=== PATIENT | female | born 1990 | race Caucasian/White ===

== ENCOUNTER 2018-10-18 12:32 | Inpatient (IN) | payer OTHER ==
[~2018-10-18] VITALS: Ht 172.7 cm; Wt 92.3 kg
[2018-10-18 19:47] VITALS: Ht 172.7 cm; Wt 92.3 kg
[2018-10-18 19:55] VITALS: BP 113/58; RESP 18
[2018-10-18] MEDS ORDERED: NACL 0.9% 3 ML SYG IV SCH (20:30)
[2018-10-18] MEDS ORDERED: ONDANSETRON 4 MG INJ IV PRN (20:30)
[2018-10-18] MEDS ORDERED: MAGNESIUM HYDROXIDE 30ML CUP PO PRN (20:30)
[2018-10-18] MEDS ORDERED: NITROGLYCERIN (SL) 0.4 MG TAB SL PRN (20:30)
[2018-10-18] MEDS ORDERED: hydrALAzine 20 MG INJ IV PRN (20:30)
[2018-10-18] MEDS ORDERED: ACETAMINOPHEN 325 MG TAB PO PRN (20:30)
[2018-10-18] MEDS ORDERED: ALBUTEROL/IPRATROPIUM (NEB) 3 ML AMP HHN PRN (20:30)
[2018-10-18] MEDS ORDERED: LORAZEPAM 2 MG INJ IV PRN (20:30)
[2018-10-18] MEDS ORDERED: DOCUSATE SODIUM 100 MG CAP PO PRN (20:30)
[2018-10-18] MEDS: SOD CHLORIDE 0.9% 1,000 ML IV SCH (21:11)
[2018-10-18] MEDS: HEPARIN 5,000 UNIT/1 ML VIAL SC SCH (21:13)
[2018-10-19 02:00] VITALS: BP 109/56; RESP 18
--- NOTE | 2018-10-19 03:50 | HP ---
Date/Time of Note Date/Time of Note DATE: 10/19/18 TIME: 03:46 Assessment/Plan VTE [place] [facility] [place]: 1 [place] [facility] [place] SCD contraindicated: other Pharmacological prophylaxis: heparin Lines/Catheters IV Catheter Type (from [facility]): Peripheral IV Assessment/Plan Hospital Course Assessment and plan: 28-year-old female past medical history of gallstones, transferred from outside hospital due to insurance purposes, who presents with abdominal pain with findings of acute cholecystitis. 1. Abdominal pain: Again likely secondary to acute cholecystitis. -Keep patient n.p.o. except meds, IV fluids, antiemetic medications, pain control medications -Monitor labs in the morning, check TSH A1c lipid panel -Again we will obtain surgery consult this is pending now they are aware to come see the patient possibly for lap scopic cholecystectomy. Again they will make a final decision on this 2. Gastritis: No present issues -Monitor for now, add H2 anita. Results 24hrs Laboratory Tests Test 10/18/18 20:51 Prothrombin Time 12.5 Prothrombin Time Ratio 1.0 INR International Normalized Ratio 0.92 Activated Partial Thromboplast Time 27.5 Free Thyroxine 0.87 HPI/ROS Admit Date/Time Admit Date/Time Oct 18, 2018 at 19:02 Hx of Present Illness 28-year-old female past medical history of gallstones, transferred from outside hospital due to insurance purposes, who presents with abdominal pain. Symptoms have been going on for the last 24 hours. Apparently no prior history of this. She describes some nonbilious nonbloody vomiting symptoms and some mild nausea symptoms. She also had some chills. No fevers, no upper lower GI bleeding no diarrhea constipation, no chest pain or shortness of breath. When she presented to the outside hospital she was found with elevated white blood cell count of 14.2, and she had an abdominal ultrasound performed that showed signs of gallstones and positive cholecystitis. Surgeon has made aware and will come see the patient later today as well as the patient is presently n.p.o. PMH/Family/Social Past Medical History Medications Current Medications IV Flush (NS 3 ml) 3 ml PER PROTOCOL IV ; Start 10/18/18 at 20:30 Ondansetron HCl (Zofran Inj) 4 mg Q6H PRN IV NAUSEA/VOMITING; Start 10/18/18 at 20:30 Acetaminophen (Tylenol Tab) 650 mg Q6H PRN PO .PAIN 1-3 OR TEMP Last administered on 10/18/18at 21:09; Admin Dose 650 MG; Start 10/18/18 at 20:30 Acetaminophen/ Hydrocodone Bitart ([place] (5/325)) 1 tab Q6H PRN PO .MOD PAIN 4- 6; Start 10/18/18 at 20:30 Morphine Sulfate (morphine) 2 mg Q4H PRN IV .SEVERE PAIN 7-10; Start 10/18/18 at 20:30 Docusate Sodium (Colace) 100 mg Q12H PRN PO .CONSTIPATION; Start 10/18/18 at 20:30 Magnesium Hydroxide (Milk Of Mag) 30 ml DAILY PRN PO .CONSTIPATION; Start 10/18/18 at 20:30 Heparin Sodium (Porcine) (Heparin (5000 Units/1ml)) 5,000 unit Q12 SC Last administered on 10/18/18at 21:13; Admin Dose 5,000 UNIT; Start 10/18/18 at 21:00 Lorazepam (Ativan) 0.5 mg Q6H PRN IV ANXIETY; Start 10/18/18 at 20:30 Sodium Chloride 1,000 ml @ 100 mls/hr Q10H IV Last administered on 10/18/18at 21:11; Admin Dose 100 MLS/HR; Start 10/18/18 at 20:26 Albuterol/ Ipratropium (Duoneb) 3 ml Q4H RESP THERAPY PRN HHN SHORTNESS OF BREATH; Start 10/18/18 at 20:30 Hydralazine HCl (Apresoline) 10 mg Q6H PRN IV ELEVATED BLOOD PRESSURE; Start 10/18/18 at 20:30 Nitroglycerin (Nitroglycerin (Sl Tab) 0.4 Mg) 1 tab Q5M PRN SL ANGINA; Start 10/18/18 at 20:30 Coded Allergies: No Known Allergy (Unverified , 10/18/18) Past Surgical History Past Surgical Hx: no surgical history Family History Significant Family History: no pertinent family hx Social History Alcohol Use: none Smoking Status: Never smoker Drug Use: none Exam/Review of Systems Vital Signs Vitals Vital Signs Date Temp Pulse Resp B/P (MAP) Pulse Ox O2 O2 Flow FiO2 Time Delivery Rate 10/19/18 98.7 18 109/56 99 02:00 (73) Exam Exam GENERAL: lying in bed, no acute distress HEENT: Pupils equal, round, and reactive to light. EOMI. NECK: Supple LUNGS: Clear to auscultation bilaterally, no rales, wheezes or rhonchi. HEART: Regular rate and rhythm, no murmurs, clicks, rubs or gallops. ABDOMEN: Soft, slightly tender to palpation, non-distended. Positive bowel sounds in all four quadrants. No rebound or guarding. EXTREMITIES: No lower extremity edema bilaterally NEURO: No focal deficits MAAME VAZQUEZ Oct 19, 2018 03:50
[2018-10-19] MEDS: SOD CHLORIDE 0.9% 1,000 ML IV SCH ×3 (06:26→22:31)
[2018-10-19] MEDS: morphine 2 MG INJ IV PRN ×3 (08:21→17:56)
[2018-10-19] MEDS: FAMOTIDINE 20 MG INJ IV SCH (08:23)
[2018-10-19] MEDS: HEPARIN 5,000 UNIT/1 ML VIAL SC SCH ×2 (08:25→22:16)
[2018-10-19 08:39] VITALS: BP 105/57; RESP 18
--- NOTE | 2018-10-19 15:00 | PN ---
Date/Time of Note Date/Time of Note DATE: 10/19/18 TIME: 14:57 Assessment/Plan VTE Prophylaxis Risk score (from [facility] [place]0 risk: 1 SCD applied (from [facility]s): Yes Pharmacological prophylaxis: NA/contraindicated Pharm contraindication: low risk/ambulating Lines/Catheters IV Catheter Type (from [facility]): Peripheral IV Assessment/Plan Hospital Course Assessment and plan 1. Acute cholecystitis. Continue IV fluids. N.p.o. for now. Continue with analgesics. Surgeon consultation is pending. 2. hx gastritis. No active issue for now. Continue on H2 anita. 3. Obesity. Weight reduction will be advised. Disposition plan. Continue IV fluids and analgesics. Awaiting surgical consultation. Continue in house monitoring. Discussed plan of care with Dr. Haddad Result Diagram: 10/19/18 0711 10/19/18 0711 Results 24hrs Laboratory Tests Test 10/18/18 20:51 10/19/18 07:11 Prothrombin Time 12.5 Prothrombin Time Ratio 1.0 INR International Normalized Ratio 0.92 Activated Partial Thromboplast Time 27.5 Free Thyroxine 0.87 White Blood Count 6.3 Red Blood Count 3.63 L Hemoglobin 11.0 L Hematocrit 32.5 L Mean Corpuscular Volume 89.5 Mean Corpuscular Hemoglobin 30.3 Mean Corpuscular Hemoglobin Concent 33.8 Red Cell Distribution Width 12.1 Platelet Count 265 Mean Platelet Volume 10.0 Immature Granulocytes % 0.200 Neutrophils % 65.0 Lymphocytes % 24.3 Monocytes % 8.0 Eosinophils % 1.9 Basophils % 0.6 Nucleated Red Blood Cells % 0.0 Immature Granulocytes # 0.010 Neutrophils # 4.1 Lymphocytes # 1.5 Monocytes # 0.5 Eosinophils # 0.1 Basophils # 0.0 Nucleated Red Blood Cells # 0.0 Sodium Level 138 Potassium Level 3.6 Chloride Level 106 Carbon Dioxide Level 24 Anion Gap 8 Blood Urea Nitrogen 7 Creatinine 0.52 Est Glomerular Filtrat Rate mL/min > 60 Glucose Level 80 Hemoglobin A1c 5.3 Calcium Level 8.3 L Phosphorus Level 3.7 Magnesium Level 1.8 Triglycerides Level 86 Cholesterol Level 143 LDL Cholesterol, Calculated 80 HDL Cholesterol 46 Cholesterol/HDL Ratio 3.1 Thyroid Stimulating Hormone (TSH) 0.801 Subjective 24 Hr Interval Summary Free Text/Dictation still reports abd pain, no nausea/vomiting Exam/Review of Systems Exam Vitals Vital Signs Date Temp Pulse Resp B/P (MAP) Pulse Ox O2 O2 Flow FiO2 Time Delivery Rate 10/19/18 98.2 18 105/57 98 08:39 (73) Intake and Output 10/18/18 10/18/18 10/19/18 1414:59 22:59 06:59 IntakeIntake Total 700 ml BalanceBalance 700 ml Constitutional: alert, oriented, obese Psych: nl mood/affect Head: normocephalic Neck: supple Respiratory: clear to auscultation, normal air movement Cardiovascular: regular rate and rhythm Gastrointestinal: soft, tender Musculoskeletal: nl extremities to inspection Neurological: CAN STERILIZER II-XII intact, nl mental status, nl speech Skin: nl turgor Results Results 24hrs Laboratory Tests Test 10/18/18 20:51 10/19/18 07:11 Prothrombin Time 12.5 Prothrombin Time Ratio 1.0 INR International Normalized Ratio 0.92 Activated Partial Thromboplast Time 27.5 Free Thyroxine 0.87 White Blood Count 6.3 Red Blood Count 3.63 L Hemoglobin 11.0 L Hematocrit 32.5 L Mean Corpuscular Volume 89.5 Mean Corpuscular Hemoglobin 30.3 Mean Corpuscular Hemoglobin Concent 33.8 Red Cell Distribution Width 12.1 Platelet Count 265 Mean Platelet Volume 10.0 Immature Granulocytes % 0.200 Neutrophils % 65.0 Lymphocytes % 24.3 Monocytes % 8.0 Eosinophils % 1.9 Basophils % 0.6 Nucleated Red Blood Cells % 0.0 Immature Granulocytes # 0.010 Neutrophils # 4.1 Lymphocytes # 1.5 Monocytes # 0.5 Eosinophils # 0.1 Basophils # 0.0 Nucleated Red Blood Cells # 0.0 Sodium Level 138 Potassium Level 3.6 Chloride Level 106 Carbon Dioxide Level 24 Anion Gap 8 Blood Urea Nitrogen 7 Creatinine 0.52 Est Glomerular Filtrat Rate mL/min > 60 Glucose Level 80 Hemoglobin A1c 5.3 Calcium Level 8.3 L Phosphorus Level 3.7 Magnesium Level 1.8 Triglycerides Level 86 Cholesterol Level 143 LDL Cholesterol, Calculated 80 HDL Cholesterol 46 Cholesterol/HDL Ratio 3.1 Thyroid Stimulating Hormone (TSH) 0.801 Medications Medication Current Medications IV Flush (NS 3 ml) 3 ml PER PROTOCOL IV ; Start 10/18/18 at 20:30 Ondansetron HCl (Zofran Inj) 4 mg Q6H PRN IV NAUSEA/VOMITING; Start 10/18/18 at 20:30 Acetaminophen (Tylenol Tab) 650 mg Q6H PRN PO .PAIN 1-3 OR TEMP Last administered on 10/18/18 21:09; Admin Dose 650 MG; Start 10/18/18 at 20:30 Acetaminophen/ Hydrocodone Bitart ([place] (5/325)) 1 tab Q6H PRN PO .MOD PAIN 4- 6; Start 10/18/18 at 20:30 Morphine Sulfate (morphine) 2 mg Q4H PRN IV .SEVERE PAIN 7-10 Last administered on 10/19/18 13:37; Admin Dose 2 MG; Start 10/18/18 at 20:30 Docusate Sodium (Colace) 100 mg Q12H PRN PO .CONSTIPATION; Start 10/18/18 at 20:30 Magnesium Hydroxide (Milk Of Mag) 30 ml DAILY PRN PO .CONSTIPATION; Start 10/18/18 at 20:30 Heparin Sodium (Porcine) (Heparin (5000 Units/1ml)) 5,000 unit Q12 SC Last ad ministered on 10/19/18 08:25; Admin Dose 5,000 UNIT; Start 10/18/18 at 21:00 Lorazepam (Ativan) 0.5 mg Q6H PRN IV ANXIETY; Start 10/18/18 at 20:30 Sodium Chloride 1,000 ml @ 100 mls/hr Q10H IV Last administered on 10/19/18at 10:44; Admin Dose 100 MLS/HR; Start 10/18/18 at 20:26 Albuterol/ Ipratropium (Duoneb) 3 ml Q4H RESP THERAPY PRN HHN SHORTNESS OF BREATH; Start 10/18/18 at 20:30 Hydralazine HCl (Apresoline) 10 mg Q6H PRN IV ELEVATED BLOOD PRESSURE; Start 10/18/18 at 20:30 Nitroglycerin (Nitroglycerin (Sl Tab) 0.4 Mg) 1 tab Q5M PRN SL ANGINA; Start 10/18/18 at 20:30 Famotidine (Pepcid Iv) 20 mg DAILY IV Last administered on 10/19/18 08:23; Admin Dose 20 MG; Start 10/19/18 at 09:00 ANALIA LOMAS NP Oct 19, 2018 15:00
[2018-10-19 15:01] VITALS: BP 113/63; RESP 19
[2018-10-19 20:59] VITALS: BP 119/59; PULSE 71; RESP 20
[2018-10-20] MEDS: HYDROCODONE/APAP (5/325) TAB PO PRN ×2 (01:45→10:06)
--- NOTE | 2018-10-20 01:49 | CONS ---
Assessment/Plan Assessment/Plan Assessment/Plan (Daily) cholelithiasis , possible cholecystitis , plan trial of diet , ultrasound right upper quadrant , if suggestive of acute cholecystits , consider lap bianca this admission . If not will consider discharge and elective lap bianca in future Consultation Date/Type/Reason Admit Date/Time Oct 18, 2018 at 19:02 Date of Consultation: Oct 19, 2018 Type of Consult general surgery Reason for Consultation abdominal pain , suspect cholecystitis Requesting Provider: MAAME VAZQUEZ Date/Time of Note DATE: 10/20/18 TIME: 01:35 Hx of Present Illness patient transferred from [facility], noted to have gallstones and diagnosed with possible cholecystitis . Patient states she developed upper abdominal pain a few days ago and similar episode couple years ago . She presented to [facility] . She was transferred to [facility] due to insurance reasons . Labs normal here . Patient states she continues to have abdominal pain . Past Medical History Medications Current Medications IV Flush (NS 3 ml) 3 ml PER PROTOCOL IV ; Start 10/18/18 at 20:30 Ondansetron HCl (Zofran Inj) 4 mg Q6H PRN IV NAUSEA/VOMITING; Start 10/18/18 at 20:30 Acetaminophen (Tylenol Tab) 650 mg Q6H PRN PO .PAIN 1-3 OR TEMP Last administered on 10/18/18at 21:09; Admin Dose 650 MG; Start 10/18/18 at 20:30 Acetaminophen/ Hydrocodone Bitart ([place] (5/325)) 1 tab Q6H PRN PO .MOD PAIN 4- 6; Start 10/18/18 at 20:30 Morphine Sulfate (morphine) 2 mg Q4H PRN IV .SEVERE PAIN 7-10 Last administered on 10/19/18at 17:56; Admin Dose 2 MG; Start 10/18/18 at 20:30 Docusate Sodium (Colace) 100 mg Q12H PRN PO .CONSTIPATION; Start 10/18/18 at 20:30 Magnesium Hydroxide (Milk Of Mag) 30 ml DAILY PRN PO .CONSTIPATION; Start 10/18/18 at 20:30 Heparin Sodium (Porcine) (Heparin (5000 Units/1ml)) 5,000 unit Q12 SC Last administered on 10/19/18at 22:16; Admin Dose 5,000 UNIT; Start 10/18/18 at 21:00 Lorazepam (Ativan) 0.5 mg Q6H PRN IV ANXIETY; Start 10/18/18 at 20:30 Sodium Chloride 1,000 ml @ 100 mls/hr Q10H IV Last administered on 10/19/18at 22:31; Admin Dose 100 MLS/HR; Start 10/18/18 at 20:26 Albuterol/ Ipratropium (Duoneb) 3 ml Q4H RESP THERAPY PRN HHN SHORTNESS OF BREATH; Start 10/18/18 at 20:30 Hydralazine HCl (Apresoline) 10 mg Q6H PRN IV ELEVATED BLOOD PRESSURE; Start 10/18/18 at 20:30 Nitroglycerin (Nitroglycerin (Sl Tab) 0.4 Mg) 1 tab Q5M PRN SL ANGINA; Start 10/18/18 at 20:30 Famotidine (Pepcid Iv) 20 mg DAILY IV Last administered on 10/19/18at 08:23; Admin Dose 20 MG; Start 10/19/18 at 09:00 Allergies: Coded Allergies: No Known Allergy (Unverified , 10/18/18) Past Surgical History Past Surgical Hx: no surgical history Social History Alcohol Use: none Smoking Status: Never smoker Drug Use: none Exam/Review of Systems Exam Vitals Vital Signs Date Temp Pulse Resp B/P (MAP) Pulse Ox O2 O2 Flow FiO2 Time Delivery Rate 10/19/18 98.3 71 20 119/59 99 20:59 (79) Intake and Output 10/19/18 10/19/18 10/20/18 1515:00 23:00 07:00 IntakeIntake Total 300 ml 1000 ml BalanceBalance 300 ml 1000 ml Gastrointestinal: tender (ruq ) Results Result Diagram: 10/19/18 0711 10/19/18 0711 Results 24hrs Laboratory Tests Test 10/19/18 07:11 White Blood Count 6.3 Red Blood Count 3.63 L Hemoglobin 11.0 L Hematocrit 32.5 L Mean Corpuscular Volume 89.5 Mean Corpuscular Hemoglobin 30.3 Mean Corpuscular Hemoglobin Concent 33.8 Red Cell Distribution Width 12.1 Platelet Count 265 Mean Platelet Volume 10.0 Immature Granulocytes % 0.200 Neutrophils % 65.0 Lymphocytes % 24.3 Monocytes % 8.0 Eosinophils % 1.9 Basophils % 0.6 Nucleated Red Blood Cells % 0.0 Immature Granulocytes # 0.010 Neutrophils # 4.1 Lymphocytes # 1.5 Monocytes # 0.5 Eosinophils # 0.1 Basophils # 0.0 Nucleated Red Blood Cells # 0.0 Sodium Level 138 Potassium Level 3.6 Chloride Level 106 Carbon Dioxide Level 24 Anion Gap 8 Blood Urea Nitrogen 7 Creatinine 0.52 Est Glomerular Filtrat Rate mL/min > 60 Glucose Level 80 Hemoglobin A1c 5.3 Calcium Level 8.3 L Phosphorus Level 3.7 Magnesium Level 1.8 Triglycerides Level 86 Cholesterol Level 143 LDL Cholesterol, Calculated 80 HDL Cholesterol 46 Cholesterol/HDL Ratio 3.1 Thyroid Stimulating Hormone (TSH) 0.801 Medications Medication Current Medications IV Flush (NS 3 ml) 3 ml PER PROTOCOL IV ; Start 10/18/18 at 20:30 Ondansetron HCl (Zofran Inj) 4 mg Q6H PRN IV NAUSEA/VOMITING; Start 10/18/18 at 20:30 Acetaminophen (Tylenol Tab) 650 mg Q6H PRN PO .PAIN 1-3 OR TEMP Last administered on 10/18/18at 21:09; Admin Dose 650 MG; Start 10/18/18 at 20:30 Acetaminophen/ Hydrocodone Bitart ([place] (5/325)) 1 tab Q6H PRN PO .MOD PAIN 4- 6; Start 10/18/18 at 20:30 Morphine Sulfate (morphine) 2 mg Q4H PRN IV .SEVERE PAIN 7-10 Last administered on 10/19/18at 17:56; Admin Dose 2 MG; Start 10/18/18 at 20:30 Docusate Sodium (Colace) 100 mg Q12H PRN PO .CONSTIPATION; Start 10/18/18 at 20:30 Magnesium Hydroxide (Milk Of Mag) 30 ml DAILY PRN PO .CONSTIPATION; Start 10/18/18 at 20:30 Heparin Sodium (Porcine) (Heparin (5000 Units/1ml)) 5,000 unit Q12 SC Last administered on 10/19/18at 22:16; Admin Dose 5,000 UNIT; Start 10/18/18 at 21:00 Lorazepam (Ativan) 0.5 mg Q6H PRN IV ANXIETY; Start 10/18/18 at 20:30 Sodium Chloride 1,000 ml @ 100 mls/hr Q10H IV Last administered on 10/19/18at 22:31; Admin Dose 100 MLS/HR; Start 10/18/18 at 20:26 Albuterol/ Ipratropium (Duoneb) 3 ml Q4H RESP THERAPY PRN HHN SHORTNESS OF BREATH; Start 10/18/18 at 20:30 Hydralazine HCl (Apresoline) 10 mg Q6H PRN IV ELEVATED BLOOD PRESSURE; Start 10/18/18 at 20:30 Nitroglycerin (Nitroglycerin (Sl Tab) 0.4 Mg) 1 tab Q5M PRN SL ANGINA; Start 10/18/18 at 20:30 Famotidine (Pepcid Iv) 20 mg DAILY IV Last administered on 10/19/18at 08:23; Admin Dose 20 MG; Start 10/19/18 at 09:00 GIOVANA WAN MD Oct 20, 2018 01:45
[2018-10-20 02:14] VITALS: BP 104/62; PULSE 68; RESP 18
[2018-10-20 07:50] VITALS: BP 102/55; PULSE 65; RESP 16
[2018-10-20] MEDS: FAMOTIDINE 20 MG INJ IV SCH (10:14)
[2018-10-20] MEDS: HEPARIN 5,000 UNIT/1 ML VIAL SC SCH (10:15)
[2018-10-20] MEDS: SOD CHLORIDE 0.9% 1,000 ML IV SCH (10:24)
[2018-10-20 14:29] VITALS: BP 102/58; PULSE 56; RESP 16
--- NOTE | 2018-10-20 15:25 | PN ---
Date/Time of Note Date/Time of Note DATE: 10/20/18 TIME: 15:23 Assessment/Plan VTE Prophylaxis Risk score (from [facility]s)>0 risk: 2 SCD applied (from [facility]): Yes Pharmacological prophylaxis: NA/contraindicated Pharm contraindication: low risk/ambulating Lines/Catheters IV [facility] Type (from [facility]): Peripheral IV Assessment/Plan Hospital Course 1. Acute cholecystitis Surgical consultation appreciated, plan is to monitor on oral diet, continue antibiotics Patient may need surgery during his hospitalization if abdominal pain persists 2. History of gastritis Continue home meds 3. Obesity Lifestyle changes Prophylaxis: SCDs Disposition plan: Awaiting surgical recommendations. Result Diagram: 10/20/18 0831 10/20/18 0831 Results 24hrs Laboratory Tests Test 10/20/18 08:31 White Blood Count 6.5 Red Blood Count 3.69 L Hemoglobin 10.9 L Hematocrit 32.7 L Mean Corpuscular Volume 88.6 Mean Corpuscular Hemoglobin 29.5 Mean Corpuscular Hemoglobin Concent 33.3 Red Cell Distribution Width 11.9 Platelet Count 261 Mean Platelet Volume 9.8 Immature Granulocytes % 0.300 Neutrophils % 69.3 Lymphocytes % 21.1 Monocytes % 6.5 Eosinophils % 2.2 Basophils % 0.6 Nucleated Red Blood Cells % 0.0 Immature Granulocytes # 0.020 Neutrophils # 4.5 Lymphocytes # 1.4 Monocytes # 0.4 Eosinophils # 0.1 Basophils # 0.0 Nucleated Red Blood Cells # 0.0 Sodium Level 137 Potassium Level 3.7 Chloride Level 106 Carbon Dioxide Level 23 Anion Gap 8 Blood Urea Nitrogen 7 Creatinine 0.49 Est Glomerular Filtrat Rate mL/min > 60 Glucose Level 129 # Calcium Level 8.2 L Subjective 24 Hr Interval Summary Constitutional: no complaints Exam/Review of Systems Exam Vitals Vital Signs Date Temp Pulse Resp B/P (MAP) Pulse Ox O2 O2 Flow FiO2 Time Delivery Rate 10/20/18 98.9 56 16 102/58 98 Room Air 14:29 (73) Intake and Output 10/19/18 10/19/18 10/20/18 1515:00 23:00 07:00 IntakeIntake Total 300 ml 1000 ml 970 ml BalanceBalance 300 ml 1000 ml 970 ml Constitutional: alert, oriented Respiratory: clear to auscultation Cardiovascular: regular rate and rhythm Gastrointestinal: soft; No distended Musculoskeletal: nl extremities to inspection Results Results 24hrs Laboratory Tests Test 10/20/18 08:31 White Blood Count 6.5 Red Blood Count 3.69 L Hemoglobin 10.9 L Hematocrit 32.7 L Mean Corpuscular Volume 88.6 Mean Corpuscular Hemoglobin 29.5 Mean Corpuscular Hemoglobin Concent 33.3 Red Cell Distribution Width 11.9 Platelet Count 261 Mean Platelet Volume 9.8 Immature Granulocytes % 0.300 Neutrophils % 69.3 Lymphocytes % 21.1 Monocytes % 6.5 Eosinophils % 2.2 Basophils % 0.6 Nucleated Red Blood Cells % 0.0 Immature Granulocytes # 0.020 Neutrophils # 4.5 Lymphocytes # 1.4 Monocytes # 0.4 Eosinophils # 0.1 Basophils # 0.0 Nucleated Red Blood Cells # 0.0 Sodium Level 137 Potassium Level 3.7 Chloride Level 106 Carbon Dioxide Level 23 Anion Gap 8 Blood Urea Nitrogen 7 Creatinine 0.49 Est Glomerular Filtrat Rate mL/min > 60 Glucose Level 129 # Calcium Level 8.2 L Medications Medication Current Medications IV Flush (NS 3 ml) 3 ml PER PROTOCOL IV ; Start 10/18/18 at 20:30 Ondansetron HCl (Zofran Inj) 4 mg Q6H PRN IV NAUSEA/VOMITING; Start 10/18/18 at 20:30 Acetaminophen (Tylenol Tab) 650 mg Q6H PRN PO .PAIN 1-3 OR TEMP Last administered on 10/18/18at 21:09; Admin Dose 650 MG; Start 10/18/18 at 20:30 Acetaminophen/ Hydrocodone Bitart ([place] (5/325)) 1 tab Q6H PRN PO .MOD PAIN 4- 6 Last administered on 10/20/18at 10:06; Admin Dose 1 TAB; Start 10/18/18 at 20:30 Morphine Sulfate (morphine) 2 mg Q4H PRN IV .SEVERE PAIN 7-10 Last administered on 10/19/18at 17:56; Admin Dose 2 MG; Start 10/18/18 at 20:30 Docusate Sodium (Colace) 100 mg Q12H PRN PO .CONSTIPATION; Start 10/18/18 at 20:30 Magnesium Hydroxide (Milk Of Mag) 30 ml DAILY PRN PO .CONSTIPATION; Start 10/18/18 at 20:30 Heparin Sodium (Porcine) (Heparin (5000 Units/1ml)) 5,000 unit Q12 SC Last administered on 10/20/18at 10:15; Admin Dose 5,000 UNIT; Start 10/18/18 at 21:00 Lorazepam (Ativan) 0.5 mg Q6H PRN IV ANXIETY; Start 10/18/18 at 20:30 Sodium Chloride 1,000 ml @ 100 mls/hr Q10H IV Last administered on 10/20/18at 10:24; Admin Dose 100 MLS/HR; Start 10/18/18 at 20:26 Albuterol/ Ipratropium (Duoneb) 3 ml Q4H RESP THERAPY PRN HHN SHORTNESS OF BREATH; Start 10/18/18 at 20:30 Hydralazine HCl (Apresoline) 10 mg Q6H PRN IV ELEVATED BLOOD PRESSURE; Start 10/18/18 at 20:30 Nitroglycerin (Nitroglycerin (Sl Tab) 0.4 Mg) 1 tab Q5M PRN SL ANGINA; Start 10/18/18 at 20:30 Famotidine (Pepcid Iv) 20 mg DAILY IV Last administered on 10/20/18at 10:14; Admin Dose 20 MG; Start 10/19/18 at 09:00 KRYSTLE JACK Oct 20, 2018 15:25
[2018-10-20] MEDS ORDERED: METR-121 PO (16:42)
[2018-10-20] MEDS ORDERED: CIPR500T4 PO (16:42)
--- NOTE | 2018-10-20 16:44 | PDOCDIS ---
Discharge Instructions CONDITION [id number] Patient Condition: [id number] Good HOME CARE INSTRUCTIONS: [id number] Diet Instructions: [id number] Reduced Calorie ACTIVITY: [id number] Activity Restrictions: [id number] Restrictions FOLLOW UP/APPOINTMENTS Follow-up Plan FOLLOW UP WITH YOUR PCP IN 1-2 WEEKS, FOLLOW UP WITH DR GIOVAAN WAN OF SURGERY KRYSTLE JACK Oct 20, 2018 16:44
--- NOTE | 2018-10-20 17:09 | DS ---
Date/Time of Note Date/Time of Note DATE: 10/20/18 TIME: 17:07 Discharge Summary Admission/Discharge Info Admit Date/Time Oct 18, 2018 at 19:02 Discharge Date/Time October 20, 2018 Discharge Diagnosis 1. Acute cholecystitis Improved with IV antibiotics Surgical consultation appreciated, patient and surgeon preferred to do surgery as an outpatient DC with oral antibiotic Patient tolerating an oral diet and pain has improved 2. History of gastritis Continue home meds 3. Obesity Lifestyle changes Patient Condition: Good Hospital Course Patient is a 28-year-old female history of gastritis and obesity who presents with right upper quadrant pain and found to have acute cholecystitis. Patient was seen by surgery and recognition was for IV antibiotics and to monitor on oral diet. Patient was able to tolerate an oral diet and pain did improve, patient preferred to have surgery done as an outpatient and was to follow-up with Dr. Caal. Patient understood the importance of following up and to present back to the ED if pain returns. Patient was clear for DC per surgery with the understanding that the patient will follow-up as an outpatient. Patient was prescribed antibiotics upon DC. On the day of discharge patient's vitals, labs of his exam are stable. Home Meds Active Scripts Metronidazole (Flagyl) 500 Mg Tab, 500 MG PO Q8 for 5 Days, #15 TAB Prov:KRYSTLE JACK 10/20/18 Ciprofloxacin Hcl* (Ciprofloxacin Hcl*) 500 Mg Tablet, 500 MG PO BID for 5 Days, #10 TAB Prov:KRYSTLE JACK 10/20/18 Follow-up Plan FOLLOW UP WITH YOUR PCP IN 1-2 WEEKS, FOLLOW UP WITH DR GIOVANA CAAL OF SURGERY Primary Care Provider Not On Staff Doctor Time spent on discharge: > 30 minutes KRYSTLE JACK Oct 20, 2018 17:09
== END 2018-10-20 18:37 | disposition home or self-care (01) | DRG 446 ==
LOC: PP2 19:02
PROVIDERS: ADMIT Internal Medicine; ATTEND Internal Medicine
DX: K81.0 Acute cholecystitis (principal); E66.9 Obesity, unspecified; Z68.30 Body mass index [BMI] 30.0-30.9, adult
CPT/HCPCS: 76705; 76999; 80048; 80061; 83036; 83735; 84100; 84439; 84443; 85025; 85610; 85730; J1644; J2270; J7030